=== PATIENT | male | born 1960 | race Caucasian/White ===

== ENCOUNTER → 2018-11-22 | Outpatient (CLI) | payer OTHER ==
[~2018-11-22] MED LIST: ATEN50TA PO; BUDE10.2 IH; FLUT16SP NS; LORA10TA55 PO
--- NOTE | 2018-11-22 14:40 | KCIC ---
EXAM: Right elbow, 3 views. HISTORY: Pain. Swelling. COMPARISON: None. FINDINGS: 3 views of the right elbow are obtained. There is no fracture, dislocation or subluxation. There is a corticated ossicle adjacent to the lateral epicondyles, likely due to the sequela of remote injury. There is a joint effusion. IMPRESSION: Right elbow effusion. No displaced fracture is seen radiographically. Electronically signed by: Trupti Pickard MD (11/22/2018 2:37 PM) [place] [id number]
== END | disposition home or self-care (01) ==
LOC: KCIC 11:56
PROVIDERS: ATTEND Nurse Practitioner Family
DX: M25.421 Effusion, right elbow (principal)
CPT/HCPCS: 73080

== ENCOUNTER → 2018-12-21 | Outpatient (CLI) | payer OTHER ==
[~2018-12-21] MED LIST changes: +CONTRAST GIVEN. MC PRN; +IOHEXOL 300 MG/ML 100ML VIAL. IV ONE; +REGADENOSON 0.4 MG/5 ML DISP.SYRIN. IV ONE
--- NOTE | 2018-12-21 11:05 | CARD ---
MR#: [id number] Date of Study: 12/21/2018 Ordering Physician: MEL FOSTER, Referring Physician: MEL FOSTER Tech: Ivy Sumner RDCS APPROVED REPORT EXAM: Two-dimensional and M-mode echocardiogram with Doppler and color Doppler. INDICATION Thoracic Aortic Aneurysm 2D DIMENSIONS RVDd2.4 (2.9-3.5cm)Left Atrium(2D)2.8 (1.6-4.0cm) IVSd0.7 (0.7-1.1cm)Aortic Root(2D)2.8 (2.0-3.7cm) LVDd5.2 (3.9-5.9cm)LVOT Diameter2.0 (1.8-2.4cm) PWd0.8 (0.7-1.1cm)LVDs3.4 (2.5-4.0cm) FS (%) 33.9 %SV80.1 ml LVEF(%)62.4 (>50%) Aortic Valve AoV Peak Nicolas.125.0cm/sAoV VTI23.5cm AO Peak GR.6.3mmHgLVOT Peak Nicolas.132.3cm/s AO Mean GR.3mmHgAVA (VMAX)3.18cm2 JAILYN (VTI)3.60cm2 Mitral Valve MV E Oecqdttz37.3cm/sMV DECEL OGOY687ss MV A Oxtwzfep08.7cm/sE/A Ratio1.5 Pulmonary Vein S1 Zbynhche29.8cm/sD2 Uiswgsfd55.4cm/s LEFT VENTRICLE The left ventricle is normal size. There is normal left ventricular wall thickness. The left ventricu lar systolic function is normal and the ejection fraction is within normal range. The Ejection Fracti on is 60-65%. There is normal LV segmental wall motion. The left ventricular diastolic function and f illing is normal for age. RIGHT VENTRICLE The right ventricle is normal size. The right ventricular systolic function is normal. ATRIA The left atrium size is normal. The right atrium size is normal. The interatrial septum is intact wit h no evidence for an atrial septal defect or patent foramen ovale as noted on 2-D or Doppler imaging. AORTIC VALVE The aortic valve is calcified but opens well. Doppler and Color Flow revealed no significant aortic r egurgitation. There is no significant aortic valvular stenosis. MITRAL VALVE The mitral valve is normal in structure and function. There is no evidence of mitral valve prolapse. There is no mitral valve stenosis. Doppler and Color Flow revealed no mitral valve regurgitation note d. TRICUSPID VALVE The tricuspid valve is normal in structure and function. Doppler and Color Flow revealed no tricuspid valve regurgitation noted. There is no tricuspid valve stenosis. PULMONIC VALVE The pulmonic valve is not well visualized. Doppler and Color Flow revealed no pulmonic valvular regur gitation. There is no pulmonic valvular stenosis. GREAT VESSELS The aortic root is normal in size. The ascending aorta is mildly dilated at 4.1 cm although not well visualized. The IVC is normal in size and collapses >50% with inspiration. PERICARDIAL EFFUSION There is no evidence of significant pericardial effusion. Critical Notification Critical Value: No <Conclusion> The left ventricular systolic function is normal and the ejection fraction is within normal range. Th e Ejection Fraction is 60-65%. There is normal LV segmental wall motion. The ascending aorta is mildly dilated at 4.1 cm although not well visualized. Signed by : Luis Guerrero, Electronically Approved : 12/21/2018 11:04:33
--- NOTE | 2018-12-21 12:57 | RAD ---
MR#: [id number] Date of Study: 12/21/2018 Ordering Physician: MEL FOSTER, Referring Physician: APRIL JORGENSEN Tech: ANDERS Rodrigues APPROVED REPORT Test Type: Pharmacological Stress Nurse/Tech: Diane Jo R.N. Test Indications: Thoracic aortic aneurysm repaired 2011 Cardiac History: high chol, htn Medications: see ehr Medical History: see [facility] Resting ECG: SR Resting Heart Rate: 68 bpm Resting Blood Pressure: 116/68mmHg Pretest Chest Pain: No chest pain Nurse/Tech Notes lungs cta, heart tones regular Consent: The procedure was explained to the patient in lay terms. Informed consent was witnessed. Tate eout was entered into [employer]. History and Stress Test performed by LINDA Hernandez ARRT (R) (N) Pharm. Details Pharmacologic stress testing was performed using 0.4mg per 5ml of regadenoson given intravenously ove r 7-10 seconds. Stress Symptoms No chest pain or symptoms. POST EXERCISE Reason for Termination: Infusion complete Target HR: No Max HR: 102 bpm Max Blood Pressure: 163/85mmHg Chest Pain: No. Arrhythmia: No. ST Change: No. INTERPRETATION Stress EKG Conclusion: The resting EKG shows a sinus rhythm with mild nonspecific ST-T wave changes. The stress EKG shows no significant changes from baseline. No EKG evidence of stress-induced ischemia. Imaging Protocol IMAGE PROTOCOL: Rest Tc-99m/stress Tc-99m 1 day Rest: Stress: Viability: Radiopharm.Tc99m WukryglubOi95n Sestamibi Mlnm44fSm 33mCi Duration 15min. 13min. Img Date 12/21/2018 12/21/2018 Inj-Img Icha70xrn. 60min. Rest Admin Site:IV - Right AntecubitalAdministrator:LINDA Hernandez ARRT (R)(N) Stress Admin Site: IV - Right AntecubitalAdministrator: LINDA Hernandez ARRT (R)(N) STRESS DATA End Diast. Vol.70.0mlLVEDV index BSA39.0ml End Syst. Vol.17.0mlLVESV index BSA9.0ml Myocardial Gycd671.0gEject. Gesjurvz45.0% Stress Scores Regional WT2.00Summed WT12.00 Regional WM0.00Summed WM3.00 LV Perfusion The stress scans showed no significant defects. The rest scans showed no significant defects. Nuclear imaging shows no reversible ischemia or infarct. Wall Motion LV systolic function is normal with no regional wall motion abnormalities and an ejection fraction of greater than 70%. LV Perf. Quant 17 Seg. SSS0.00 17 Seg. SRS3.00 17 Seg. SDS0.00 Stress Defect Extent (% LAD)0.00Rest Defect Extent (% LAD)0.00Rev. Defect Extent (% LAD)0.00 Stress Defect Extent (% LCX) 0.00Rest Defect Extent (% LCX)5.00Rev. Defect Extent (% LCX)0.00 Stress Defect Extent (% RCA)0.00Rest Defect Extent (% RCA)11.10Rev. Defect Extent (% RCA)0.00 Stress Defect Extent (% LUIS ANTONIO)0.00Rest Defect Extent (% LUIS ANTONIO)3.70Rev. Defect Extent (% LUIS ANTONIO)0.00 Conclusion 1. No EKG evidence of stress-induced ischemia. 2. Nuclear imaging shows no reversible ischemia or infarct. 3. Normal left ventricular systolic function with an ejection fraction of greater than 70%. 4. Low risk Lexiscan nuclear stress test. Signed by : Kyle Roberto MD Electronically Approved : 12/21/2018 12:56:46
--- NOTE | 2018-12-21 14:33 | RAD ---
Examination: CT ANGIOGRAPHY CHEST History: Thoracic aortic aneurysm Comparison/Correlation: 10/11/2015 CTA chest with contrast Findings: Axial images of chest were obtained prior to and following IV contrast according to aorta arteriography protocol. Delayed postcontrast imaging of the chest was also performed. Sagittal and coronal reformatted images were provided. MIP images provided. 3-D volume rendered images were provided. Endoluminal stent material is noted to extend within the aorta just proximal to the left common carotid origin to the proximal descending thoracic aorta. No migration or kinking of the stent noted. No aortic aneurysm. No findings to suggest dissection or intramural hematoma although evaluation is limited at the aortic root on postcontrast imaging due to motion. No enlarged thoracic lymph nodes. Centrilobular emphysematous involvement of the lung gallego noted. No pleural or pericardial effusion. No pneumothorax. Mild circumferential wall thickening of the lower lobe bronchi mostly at the left lower lobe region compatible with chronic bronchitis. Partially visualized upper abdomen is unremarkable. Impression: No thoracic aortic aneurysm. No findings to suggest dissection although evaluation is limited due to motion at the aortic root. Overall morphology of the thoracic aorta is unchanged. Centrilobular emphysema. PQRS Compliance Statement: One or more of the following individualized dose reduction techniques were utilized for this examination: 1. Automated exposure control 2. Adjustment of the mA and/or kV according to patient size 3. Use of iterative reconstruction technique Electronically signed by: Severo Warner MD (12/21/2018 2:31 PM) [facility]
== END | disposition home or self-care (01) ==
LOC: NM 08:25
PROVIDERS: ATTEND Internal Medicine Cardiovascular Disease
DX: I35.0 Nonrheumatic aortic (valve) stenosis (principal); I71.2 Thoracic aortic aneurysm, without rupture; J42 Unspecified chronic bronchitis; I10 Essential (primary) hypertension; E78.00 Pure hypercholesterolemia, unspecified
CPT/HCPCS: 71275; 78452; 93017; 93306; A9500; J2785; Q9967

== ENCOUNTER 2020-07-05 03:20 | Day surgery (SDC) | payer OTHER ==
[~2020-07-05] VITALS: Ht 170.2 cm; Wt 68.0 kg
[~2020-07-05 03:20] MED LIST changes: -CONTRAST GIVEN. MC PRN; -IOHEXOL 300 MG/ML 100ML VIAL. IV ONE; +LORA-169 PO; -LORA10TA55 PO; -REGADENOSON 0.4 MG/5 ML DISP.SYRIN. IV ONE
--- NOTE | 2020-07-05 03:43 | ED.ADGEN ---
General Adult EDM: Chief Complaint: DIFFICULTY SWALLOWING HPI: HPI: Patient is a 59 year old male coming in for difficulty swallowing. Patient was eating pork when he felt like it lodged in his esophagus. Had tried eating oatmeal at the advice of a coworker without improvement. Patient states he is unable to keep fluids down. Has not had this happen before. Patient states he otherwise has been well Review of Systems: Review of Systems: All other systems within normal limits except for as noted in the HPI Current Medications: Current Medications Medications (Trade) Dose Ordered Sig/Muna Start Time Stop Time Status Last Admin Dose Admin Glucagon (Glucagen) 1 mg 1X ONCE 07/05/20 05:30 07/05/20 05:31 DC 07/05/20 05:24 1 MG Info (CONTRAST GIVEN -- Rx MONITORING) 1 each PRN DAILY PRN 07/05/20 05:15 07/07/20 05:14 Iohexol (Omnipaque 300 Mg/ml) 75 ml 1X ONCE 07/05/20 05:30 07/05/20 05:31 DC 07/05/20 05:16 75 ML Morphine Sulfate (Morphine Sulfate) 4 mg PRN Q2HR PRN 07/05/20 05:45 07/06/20 05:44 Ondansetron HCl (Zofran) 4 mg PRN Q8HRS PRN 07/05/20 05:45 07/06/20 05:44 Sodium Chloride 1,000 ml @ 75 mls/hr [id number] 07/05/20 06:00 07/06/20 05:59 07/05/20 06:07 75 MLS/HR Allergies: Allergies: Allergies Coded Allergies Type Severity Reaction Last Updated Verified No Known Drug Allergies 05/01/14 No Physical Exam: PE: Constitutional: Well developed, well nourished, no acute distress, non-toxic appearance. [] HENT: Normocephalic, atraumatic, bilateral external ears normal, nose normal. [] Eyes: PERRLA, conjunctiva normal, no discharge. [] Neck: No rigidity, supple, no stridor. [] Cardiovascular: Regular rate and rhythm, brisk cap refill [] Lungs & Thorax: Non labored symmetric respirations, no tachypnea or respiratory distress [] Abdomen: Soft, nondistended. Skin: Warm, dry, no erythema, no rash. [] Back: Unremarkable Extremities: No deformities, range of motion grossly intact, no lower extremity edema [] Neurologic: Alert and oriented X 3, no focal deficits noted. [] Psychologic: Affect normal, judgement normal, mood normal. [] Current Patient Data: Labs: Laboratory Tests Test 07/05/20 03:59 White Blood Count 12.1 x10^3/uL (4.0-11.0) H Red Blood Count 4.82 x10^6/uL (4.30-5.70) Hemoglobin 14.2 g/dL (13.0-17.5) Hematocrit 43.0 % (39.0-53.0) Mean Corpuscular Volume 89 fL (79-100) Mean Corpuscular Hemoglobin 30 pg (25-35) Mean Corpuscular Hemoglobin Concent 33 g/dL (31-37) Red Cell Distribution Width 13.9 % (11.5-14.5) Platelet Count 347 x10^3/uL (140-400) Neutrophils (%) (Auto) 94 % (31-73) H Lymphocytes (%) (Auto) 4 % (24-48) L Monocytes (%) (Auto) 2 % (0-9) Eosinophils (%) (Auto) 0 % (0-3) Basophils (%) (Auto) 0 % (0-3) Neutrophils # (Auto) 11.3 x10^3/uL (1.8-7.7) H Lymphocytes # (Auto) 0.5 x10^3/uL (1.0-4.8) L Monocytes # (Auto) 0.2 x10^3/uL (0.0-1.1) Eosinophils # (Auto) 0.0 x10^3/uL (0.0-0.7) Basophils # (Auto) 0.1 x10^3/uL (0.0-0.2) Segmented Neutrophils % 96 % (35-66) H Band Neutrophils % 1 % (0-9) Lymphocytes % 3 % (24-48) L Platelet Estimate Adequate (ADEQUATE) Sodium Level 143 mmol/L (136-145) Potassium Level 4.0 mmol/L (3.5-5.1) Chloride Level 103 mmol/L (98-107) Carbon Dioxide Level 29 mmol/L (21-32) Anion Gap 11 (6-14) Blood Urea Nitrogen 20 mg/dL (8-26) Creatinine 0.9 mg/dL (0.7-1.3) Estimated GFR (Cockcroft-Gault) 86.4 BUN/Creatinine Ratio 22 (6-20) H Glucose Level 121 mg/dL (70-99) H Calcium Level 9.3 mg/dL (8.5-10.1) Total Bilirubin 1.3 mg/dL (0.2-1.0) H Aspartate Amino Transferase (AST) 29 U/L (15-37) Alanine Aminotransferase (ALT) 34 U/L (16-63) Alkaline Phosphatase 52 U/L (46-116) Troponin I Quantitative < 0.017 ng/mL (0.000-0.055) Total Protein 7.2 g/dL (6.4-8.2) Albumin 4.3 g/dL (3.4-5.0) Albumin/Globulin Ratio 1.5 (1.0-1.7) Laboratory Tests 07/05/20 03:59 Laboratory Tests 07/05/20 03:59 Vital Signs: Vital Signs Date Time Temp Pulse Resp B/P (MAP) Pulse Ox O2 Delivery O2 Flow Rate FiO2 07/05/20 03:33 98.5 96 20 139/64 (89) 96 Room Air 98.5 EKG: EKG: [] Heart Score: C/O Chest Pain: N/A Risk Factors: Risk Factors: DM, Current or recent (<one month) smoker, HTN, HLP, family history of CAD, obesity. Risk Scores: Score 0 - 3: 2.5% MACE over next 6 weeks - Discharge Home Score 4 - 6: 20.3% MACE over next 6 weeks - Admit for Clinical Observation Score 7 - 10: 72.7% MACE over next 6 weeks - Early Invasive Strategies Radiology/Procedures: Radiology/Procedures: CT THORAX W INDICATION: food bolus impaction Comparison: 12/21/2018. TECHNIQUE: Following the uneventful administration of intravenous contrast, 75 cc Omnipaque 300, axial CT sections were obtained through the lungs and upper abdomen. Multiplanar reconstructions and MIP images were obtained. PQRS compliance statement: One or more of the following individualized dose reduction techniques were utilized for this examination: 1. Automated exposure control 2. Adjustment of the mA and/or kV according to patient size 3. Use of iterative reconstruction technique FINDINGS: Lungs and Airways: No pulmonary mass or consolidation. Centrilobular emphysema. No abnormality of the central airways. Pleura: The pleural spaces are normal. Heart and Mediastinum: The visualized thyroid is normal in size and attenuation. No axillary or supraclavicular lymphadenopathy. No mediastinal, hilar or retrocrural lymphadenopathy. Calcified right hilar lymph nodes consistent with remote granulomatous disease. The heart and pericardium are within normal limits. Postsurgical changes of aortic stent graft repair. Distal esophageal wall thickening. Heterogeneous debris in the distal esophagus just proximal to this area of thickening, with fluid distention of the remainder of the esophagus. Abdomen: Limited images through the upper abdomen show no abnormality of the visualized organs. Bones and Soft Tissues: The visualized bones and chest wall soft tissues are within normal limits. IMPRESSION: 1. Incompletely characterized distal esophageal wall thickening. While this could represent esophagitis, direct visualization is recommended to exclude underlying neoplasm. 2. Heterogeneous debris just proximal to this area of thickening consistent with patient's history of food bolus impaction. Remainder of the esophagus is mildly distended and fluid-filled. Electronically signed by: Saji Boothe MD (07/05/2020 5:32 AM) [facility] Course & Med Decision Making: Course & Med Decision Making Pertinent Labs and Imaging studies reviewed. (See chart for details) Attempted soda with jumping on heels all times per minute. Glucagon x2 without dislodgment of food bolus. Will admit for GI evaluation due to CT read indicating possible plasm esophageal thickening [] Dragon Disclaimer: Clint Disclaimer: This electronic medical record was generated, in whole or in part, using a voice recognition dictation system. Departure Departure Impression: Primary Impression: Esophageal obstruction due to food impaction Disposition: ADMITTED INPT THIS HOSP Admitting Physician: [facility] Condition: STABLE Referrals: DIONY BRAVO MD (PCP) AZALEA KERN MD Jul 05, 2020 03:43
[2020-07-05] MEDS ORDERED: GLUCAGON,HUMAN RECOMBINANT 1 MG/ML VIAL. IV ONE ×2 (04:00→05:30)
[2020-07-05] MEDS ORDERED: ONDANSETRON PF 4 MG/2 ML VIAL. IVP ONE (04:00)
[2020-07-05 04:43] LABS: BASO # 0.1 x10^3/uL (0.0-0.2); BASO % 0 % (0-3); EOS % 0 % (0-3); HEMOGLOBIN 14.2 g/dL (13.0-17.5); LYMPH # 0.5 x10^3/uL (1.0-4.8); LYMPH % 4 % (24-48); MEAN CORPUSCULAR HEMOGLOBIN 30 pg (25-35); MEAN CORPUSCULAR HGB CONC 33 g/dL (31-37); MEAN CORPUSCULAR VOLUME 89 fL (79-100); MONO # 0.2 x10^3/uL (0.0-1.1); MONO % 2 % (0-9); NEUT # 11.3 x10^3/uL (1.8-7.7); NEUT % 94 % (31-73); PLATELET COUNT 347 x10^3/uL (140-400); RED BLOOD COUNT 4.82 x10^6/uL (4.30-5.70); RED CELL DISTRIBUTION WIDTH 13.9 % (11.5-14.5); WHITE BLOOD COUNT 12.1 x10^3/uL (4.0-11.0)
[2020-07-05 04:51] LABS: CALCIUM 9.3 mg/dL (8.5-10.1); CREATININE 0.9 mg/dL (0.7-1.3); GFR 86.4
[2020-07-05 04:58] LABS: ALBUMIN 4.3 g/dL (3.4-5.0); ALBUMIN/GLOBULIN RATIO 1.5 (1.0-1.7); TOTAL BILIRUBIN 1.3 mg/dL (0.2-1.0); TOTAL PROTEIN 7.2 g/dL (6.4-8.2)
[2020-07-05] MEDS ORDERED: CONTRAST GIVEN. MC PRN (05:15)
[2020-07-05] MEDS ORDERED: IOHEXOL 300 MG/ML 100ML VIAL. IV ONE (05:30)
--- NOTE | 2020-07-05 05:34 | RAD ---
CT THORAX W INDICATION: food bolus impaction Comparison: 12/21/2018. TECHNIQUE: Following the uneventful administration of intravenous contrast, 75 cc Omnipaque 300, axia l CT sections were obtained through the lungs and upper abdomen. Multiplanar reconstructions and MIP images were obtained. PQRS compliance statement: One or more of the following individualized dose reduction techniques were utilized for this examinat ion: 1. Automated exposure control 2. Adjustment of the mA and/or kV according to patient size 3. Use of iterative reconstruction technique FINDINGS: Lungs and Airways: No pulmonary mass or consolidation. Centrilobular emphysema. No abnormality of the central airways. Pleura: The pleural spaces are normal. Heart and Mediastinum: The visualized thyroid is normal in size and attenuation. No axillary or supra clavicular lymphadenopathy. No mediastinal, hilar or retrocrural lymphadenopathy. Calcified right hil ar lymph nodes consistent with remote granulomatous disease. The heart and pericardium are within nor mal limits. Postsurgical changes of aortic stent graft repair. Distal esophageal wall thickening. Het erogeneous debris in the distal esophagus just proximal to this area of thickening, with fluid disten tion of the remainder of the esophagus. Abdomen: Limited images through the upper abdomen show no abnormality of the visualized organs. Bones and Soft Tissues: The visualized bones and chest wall soft tissues are within normal limits. IMPRESSION: 1. Incompletely characterized distal esophageal wall thickening. While this could represent esophagit is, direct visualization is recommended to exclude underlying neoplasm. 2. Heterogeneous debris just proximal to this area of thickening consistent with patient's history of food bolus impaction. Remainder of the esophagus is mildly distended and fluid-filled. Electronically signed by: Saji Boothe MD (07/05/2020 5:32 AM) [facility]
[2020-07-05] MEDS ORDERED: MORPHINE SULFATE 4 MG/ML VIAL. IV PRN (05:45)
[2020-07-05] MEDS ORDERED: ONDANSETRON PF 4 MG/2 ML VIAL. IV PRN (05:45)
[2020-07-05 05:52] LABS: % BANDS 1 % (0-9); % LYMPHS 3 % (24-48); % SEGS 96 % (35-66); PLT ESTIMATE ADEQUATE (ADEQUATE)
[2020-07-05] MEDS ORDERED: IV NORMAL SALINE 1000ML BAG 1,000 ML IV SCH (06:00)
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
[2020-07-05] MEDS ORDERED: PANTOPRAZOLE IV PUSH 40 MG VIAL. IVP ONE (09:00)
--- NOTE | 2020-07-05 09:01 | PDOC1 ---
History and Physical Date of Service: DOS: DATE: 07/05/20 TIME: 08:58 Chief Complaint: Chief Complain: Difficulty swallowing History of Present Illness: HPI: 59 year old male coming in for difficulty swallowing. Patient was eating pork when he felt like it lodged in his esophagus. Had tried eating oatmeal at the advice of a coworker without improvement. Patient states he is unable to keep fluids down. Has not had this happen before. Patient states he otherwise has been well Past Medical/Surgical History: PMH/PSH: Hypertension, thoracic aortic aneurysm repair, dyslipidemia, COPD, testicular surgery Allergies: Allergies: Coded Allergies: No Known Drug Allergies (Unverified , 07/05/20) Family History: Family History: History of esophageal dilation in the father Social History: Social History: Former smoker, occasional alcohol drinker Current Medications: Current Medications Current Medications Glucagon (Glucagen) 1 mg 1X ONCE IV Last administered on 07/05/20at 04:07; Start 07/05/20 at 04:00; Stop 07/05/20 at 04:01; Status DC Ondansetron HCl (Zofran) 4 mg 1X ONCE IVP Last administered on 07/05/20at 04:29; Start 07/05/20 at 04:00; Stop 07/05/20 at 04:01; Status DC Iohexol (Omnipaque 300 Mg/ml) 75 ml 1X ONCE IV Last administered on 07/05/20at 05:16; Start 07/05/20 at 05:30; Stop 07/05/20 at 05:31; Status DC Glucagon (Glucagen) 1 mg 1X ONCE IV Last administered on 07/05/20at 05:24; Start 07/05/20 at 05:30; Stop 07/05/20 at 05:31; Status DC Info (CONTRAST GIVEN -- Rx MONITORING) 1 each PRN DAILY PRN MC SEE COMMENTS; Start 07/05/20 at 05:15; Stop 07/07/20 at 05:14 Ondansetron HCl (Zofran) 4 mg PRN Q8HRS PRN IV NAUSEA/VOMITING 1ST CHOICE Last administered on 07/05/20at 06:23; Start 07/05/20 at 05:45; Stop 07/06/20 at 05:44 Morphine Sulfate (Morphine Sulfate) 4 mg PRN Q2HR PRN IV SEVERE PAIN 7-10; Start 07/05/20 at 05:45; Stop 07/06/20 at 05:44 Sodium Chloride 1,000 ml @ 75 mls/hr [id number] IV Last administered on 07/05/20at 06:07; Start 07/05/20 at 06:00; Stop 07/06/20 at 05:59 Pantoprazole Sodium (PROTONIX VIAL for IV PUSH) 40 mg 1X ONCE IVP ; Start 07/05/20 at 09:00; Stop 07/05/20 at 09:01 Active Scripts Active Reported Fluticasone Propionate 16 Gm Chelsea.susp 1 Chelsea NS DAILY Loratadine 10 Mg Tab.rapdis 10 Mg PO Atenolol 50 Mg Tablet 50 Mg PO DAILY Symbicort 160-4.5 Mcg Inhaler (Budesonide/Formoterol Fumarate) 10.2 Gm Hfa.aer.ad 2 Puff IH BID ROS: Review of Systems Review of System REVIEW OF SYSTEMS: GENERAL: Denies weakness SKIN: No bruising, hair changes or rashes. EYES: No blurred, double or loss of vision. NOSE AND THROAT: No history of nosebleeds, hoarseness or sore throat. HEART: No history of palpitations, chest pain or shortness of breath on exertion. LUNGS: Denies cough, hemoptysis, wheezing or shortness of breath. GASTROINTESTINAL: Denies changes in appetite, nausea, vomiting, diarrhea or constipation. GENITOURINARY: No history of frequency, urgency, hesitancy or nocturia. NEUROLOGIC: Denies history of numbness, tingling, or tremor. PSYCHIATRIC: No history of panic, anxiety or depression. ENDOCRINE: No history of heat or cold intolerance, polyuria or polydipsia. EXTREMITIES: Denies joint pain, pain on walking or stiffness. Physical Exam: Vital Signs: Vital Signs Date Time Temp Pulse Resp B/P (MAP) Pulse Ox O2 Delivery O2 Flow Rate FiO2 07/05/20 07:14 106 132/80 (97) 93 Room Air 07/05/20 03:33 98.5 20 98.5 Physcial Exam: GEN: No apparent distress. Alert and oriented HEENT: Normal cephalic, atraumatic, external auditory canals are patent EYES: Extraocular muscles are intact, pupil are equally round and reactive to light and accommodation MUSCULOSKELETAL: Well developed , well nourished, good range of motion ENDOCRINE: No thyromegaly was palpated LYMPHATICS: No cervical chain or axillary nodes were noted HEMATOPOIETIC: No bruising NECK: Supple, no JVD, no thyromegaly was noted LUNGS: Clear to auscultation in all lung gallego without rhonchi or wheezing HEART: RRR, S!, S2 present. Peripheral pulses intact, no obvious murmurs noted ABDOMEN: Soft, nontender. Positive bowel sounds, no organomegaly, normal bowel sounds EXTREMITIES: Without clubbing, cyanosis, or edema. Pedal pulses intact. Negative Homans sign NEUROLOGIC: Normal speech and tone. A&O x 3, moves all extremities, no obvious focal deficits PSYCHIATRIC: Normal affect, normal mood. Stable SKIN: No ulcerations or rashes, good skin turgor, no jaundice VASCULAR: Good capillary refill, neurovascular bundle appears to be intact Labs: Labs: Laboratory Tests Test 07/05/20 03:59 White Blood Count 12.1 x10^3/uL (4.0-11.0) Red Blood Count 4.82 x10^6/uL (4.30-5.70) Hemoglobin 14.2 g/dL (13.0-17.5) Hematocrit 43.0 % (39.0-53.0) Mean Corpuscular Volume 89 fL (79-100) Mean Corpuscular Hemoglobin 30 pg (25-35) Mean Corpuscular Hemoglobin Concent 33 g/dL (31-37) Red Cell Distribution Width 13.9 % (11.5-14.5) Platelet Count 347 x10^3/uL (140-400) Neutrophils (%) (Auto) 94 % (31-73) Lymphocytes (%) (Auto) 4 % (24-48) Monocytes (%) (Auto) 2 % (0-9) Eosinophils (%) (Auto) 0 % (0-3) Basophils (%) (Auto) 0 % (0-3) Neutrophils # (Auto) 11.3 x10^3/uL (1.8-7.7) Lymphocytes # (Auto) 0.5 x10^3/uL (1.0-4.8) Monocytes # (Auto) 0.2 x10^3/uL (0.0-1.1) Eosinophils # (Auto) 0.0 x10^3/uL (0.0-0.7) Basophils # (Auto) 0.1 x10^3/uL (0.0-0.2) Segmented Neutrophils % 96 % (35-66) Band Neutrophils % 1 % (0-9) Lymphocytes % 3 % (24-48) Platelet Estimate Adequate (ADEQUATE) Sodium Level 143 mmol/L (136-145) Potassium Level 4.0 mmol/L (3.5-5.1) Chloride Level 103 mmol/L (98-107) Carbon Dioxide Level 29 mmol/L (21-32) Anion Gap 11 (6-14) Blood Urea Nitrogen 20 mg/dL (8-26) Creatinine 0.9 mg/dL (0.7-1.3) Estimated GFR (Cockcroft-Gault) 86.4 BUN/Creatinine Ratio 22 (6-20) Glucose Level 121 mg/dL (70-99) Calcium Level 9.3 mg/dL (8.5-10.1) Total Bilirubin 1.3 mg/dL (0.2-1.0) Aspartate Amino Transf (AST/SGOT) 29 U/L (15-37) Alanine Aminotransferase (ALT/SGPT) 34 U/L (16-63) Alkaline Phosphatase 52 U/L (46-116) Troponin I Quantitative < 0.017 ng/mL (0.000-0.055) Total Protein 7.2 g/dL (6.4-8.2) Albumin 4.3 g/dL (3.4-5.0) Albumin/Globulin Ratio 1.5 (1.0-1.7) Laboratory Tests Test 07/05/20 03:59 White Blood Count 12.1 x10^3/uL (4.0-11.0) Red Blood Count 4.82 x10^6/uL (4.30-5.70) Hemoglobin 14.2 g/dL (13.0-17.5) Hematocrit 43.0 % (39.0-53.0) Mean Corpuscular Volume 89 fL (79-100) Mean Corpuscular Hemoglobin 30 pg (25-35) Mean Corpuscular Hemoglobin Concent 33 g/dL (31-37) Red Cell Distribution Width 13.9 % (11.5-14.5) Platelet Count 347 x10^3/uL (140-400) Neutrophils (%) (Auto) 94 % (31-73) Lymphocytes (%) (Auto) 4 % (24-48) Monocytes (%) (Auto) 2 % (0-9) Eosinophils (%) (Auto) 0 % (0-3) Basophils (%) (Auto) 0 % (0-3) Neutrophils # (Auto) 11.3 x10^3/uL (1.8-7.7) Lymphocytes # (Auto) 0.5 x10^3/uL (1.0-4.8) Monocytes # (Auto) 0.2 x10^3/uL (0.0-1.1) Eosinophils # (Auto) 0.0 x10^3/uL (0.0-0.7) Basophils # (Auto) 0.1 x10^3/uL (0.0-0.2) Segmented Neutrophils % 96 % (35-66) Band Neutrophils % 1 % (0-9) Lymphocytes % 3 % (24-48) Platelet Estimate Adequate (ADEQUATE) Sodium Level 143 mmol/L (136-145) Potassium Level 4.0 mmol/L (3.5-5.1) Chloride Level 103 mmol/L (98-107) Carbon Dioxide Level 29 mmol/L (21-32) Anion Gap 11 (6-14) Blood Urea Nitrogen 20 mg/dL (8-26) Creatinine 0.9 mg/dL (0.7-1.3) Estimated GFR (Cockcroft-Gault) 86.4 BUN/Creatinine Ratio 22 (6-20) Glucose Level 121 mg/dL (70-99) Calcium Level 9.3 mg/dL (8.5-10.1) Total Bilirubin 1.3 mg/dL (0.2-1.0) Aspartate Amino Transf (AST/SGOT) 29 U/L (15-37) Alanine Aminotransferase (ALT/SGPT) 34 U/L (16-63) Alkaline Phosphatase 52 U/L (46-116) Troponin I Quantitative < 0.017 ng/mL (0.000-0.055) Total Protein 7.2 g/dL (6.4-8.2) Albumin 4.3 g/dL (3.4-5.0) Albumin/Globulin Ratio 1.5 (1.0-1.7) Images: Images CT CHEST IMPRESSION: 1. Incompletely characterized distal esophageal wall thickening. While this could represent esophagitis, direct visualization is recommended to exclude underlying neoplasm. 2. Heterogeneous debris just proximal to this area of thickening consistent with patient's history of food bolus impaction. Remainder of the esophagus is mildly distended and fluid-filled. Assessment/Plan Assessment/Plan Odynophagia Esophageal food bolus impaction Reactive leukocytosis Admit to medicine for further management GI consult for EGD n.p.o. for EGD Ambulation for DVT prophylaxis Protonix GI prophylaxis ADA diet Full code Discussed with RN and SW Disposition patient management as above Surrogate decision maker is the Justifications for Admission Other Justification TAMI STEINBERG MD Jul 05, 2020 09:01
[2020-07-05] MEDS ORDERED: IV RINGERS,LACTATED 1000ML 1,000 ML IV ONE (09:30)
[2020-07-05] MEDS ORDERED: ALPR0.25 PO (09:49)
[2020-07-05] MEDS ORDERED: CITA10TA4 PO (09:49)
[2020-07-05] MEDS ORDERED: LIDOCAINE 2% PF 5 ML VIAL. ONE (10:01)
[2020-07-05] MEDS ORDERED: PROPOFOL 10 MG/ML (20ML) VIAL. IV ONE ×2 (10:01→10:31)
--- NOTE | 2020-07-05 10:37 | PDOC4 ---
Operative Note Operative Note EGD with food bolus extraction Meds propofol per anesthesia Pre-op dx dysphagia/meat impaction post-ox dx s/p food bolus extraction esophagitis gastritis Plan resume diet release home once breathing/hypoxemia improved egd in 2 weeks for dilation prilsoec 40 mg daily for 2 months MATTHEW LARIOS MD Jul 05, 2020 10:37
[2020-07-05 10:52] VITALS: BP 128/68
== END 2020-07-05 12:30 | disposition home or self-care (01) ==
LOC: ER 03:20 → ED HOLD 05:48 → UNDOADMOB 05:48 → ED HOLD 06:53 → ER 06:53 → SDC 07:00
PROVIDERS: ATTEND Internal Medicine Gastroenterology
DX: R13.10 Dysphagia, unspecified (principal); T18.128A Food in esophagus causing other injury, initial encounter; K29.50 Unspecified chronic gastritis without bleeding; K20.90 Esophagitis, unspecified without bleeding; K31.89 Other diseases of stomach and duodenum; I10 Essential (primary) hypertension; J44.9 Chronic obstructive pulmonary disease, unspecified; F41.9 Anxiety disorder, unspecified; F32.9 Major depressive disorder, single episode, unspecified; Z79.899 Other long term (current) drug therapy; Z98.890 Other specified postprocedural states; Z87.891 Personal history of nicotine dependence; Z72.89 Other problems related to lifestyle; X58.XXXA Exposure to other specified factors, initial encounter; Y93.89 Activity, other specified; Y92.89 Other specified places as the place of occurrence of the external cause; Y99.8 Other external cause status
CPT/HCPCS: 36415; 43247; 71260; 80053; 84484; 85007; 85025; 87426; J1610; J2405; J2704; J7030; J7120; Q9967; U0003; 96361; 96374; 96375; 96376; 99285-25

== ENCOUNTER → 2020-08-07 | Day surgery (SDC) | payer OTHER ==
[~2020-08-07] MED LIST changes: +ALPR0.25 PO; +ASPI-630 PO; +CITA10TA4 PO; +HYDROmorphone 2 MG/ML VIAL IVP PRN; +IV RINGERS,LACTATED 1000ML 1,000 ML IV SCH; +LIDOCAINE 2% PF 5 ML VIAL. ONE; +MORPHINE SULFATE 2 MG/ML VIAL. IVP PRN; +OMEP40CA45 PO; +PRAV40TA2 PO; +PROCHLORPERAZINE 10 MG/2 ML VIAL. IVP PRN; +PROPOFOL 10 MG/ML (20ML) VIAL. IV ONE; +ePHEDrine PF IN SALINE 50 MG/10 ML SYRINGE. IV ONE; +fentaNYL PF VIAL 100 MCG/2 ML VIAL IVP PRN
[2020-08-07 08:09] VITALS: BP 97/56
--- NOTE | 2020-08-07 10:03 | HP ---
ADMIT DATE: 08/07/2020 REASON: Dysphagia, history of meat impaction. HISTORY OF PRESENT ILLNESS: This is a 59-year-old male whose past medical history is significant for hypertension, history of thoracic aortic aneurysm repair, hyperlipidemia, COPD, seen for interval dilatation. The patient had a piece of pork stuck approximately month ago, has been on medical therapy since, omeprazole 40 mg daily, has minimal difficulties. He is here for interval dilatation. PAST MEDICAL HISTORY: COPD, hypertension, hyperlipidemia, status post thoracic aortic aneurysm repair. ALLERGIES: None. MEDICATIONS: Include Xanax, aspirin, atenolol, budesonide, citalopram, fluticasone, loratadine, omeprazole, and pravastatin. SOCIAL HISTORY: Former smoker, social drinker. PAST SURGICAL HISTORY: As stated. REVIEW OF SYSTEMS: Per records. PHYSICAL EXAMINATION: GENERAL: Reveals a well-nourished, well-developed male who is alert, cooperative, in no acute distress. VITAL SIGNS: Temperature 97.6, pulse 66, respiratory rate 20, sats 98%. LUNGS: Clear. CARDIOVASCULAR: Reveals an S1, S2 without S3, S4 or appreciable murmur. ABDOMEN: Soft abdomen, normal bowel sounds, without appreciable hepatosplenomegaly. IMPRESSION: Esophageal stricture with reflux, here for interval dilatation. Risks and benefits were previously discussed with patient is willing to proceed at this time. MATTHEW LARIOS MD DR: NOEL/leah JOB#: [id number] / [id number]
== END | disposition home or self-care (01) ==
LOC: ENDOS 06:48
PROVIDERS: ATTEND Internal Medicine Gastroenterology
DX: R13.10 Dysphagia, unspecified (principal); K29.50 Unspecified chronic gastritis without bleeding; K22.2 Esophageal obstruction; I10 Essential (primary) hypertension; J44.9 Chronic obstructive pulmonary disease, unspecified; E78.5 Hyperlipidemia, unspecified; F41.9 Anxiety disorder, unspecified; F32.9 Major depressive disorder, single episode, unspecified; Z87.891 Personal history of nicotine dependence; Z79.82 Long term (current) use of aspirin; Z79.899 Other long term (current) drug therapy; Z98.890 Other specified postprocedural states; Z20.822 Contact with and (suspected) exposure to COVID-19
CPT/HCPCS: 43450; 87426; J2704